=== PATIENT | female | born 1975 | race African-American/Black ===

== ENCOUNTER 2016-07-25 15:53 | Emergency (ER) | payer OTHER ==
[~2016-07-25 15:53] MED LIST: BACTRIM DS TABL1 TA1 PO; CLOMID50 MG PO; FLEXERIL PO; IBUPROFEN PO; IRON1 TAB PO; METFORMIN PO; NORCO1 TAB 10/3 PO; NORVASC2.5 MG; PRENATAL1 TA1 PO
[2016-07-25 16:06] LABS: INFLUENZA A NEG (NEG); INFLUENZA B POS (NEG)
== END 2016-07-25 16:28 | disposition home or self-care (01) ==
LOC: SED 15:53
PROVIDERS: Physician Assistant Medical
DX: J10.1 Influenza due to other identified influenza virus with other respiratory manifestations (principal); I10 Essential (primary) hypertension; Z79.899 Other long term (current) drug therapy
CPT/HCPCS: 87651; 87804; 99283